=== PATIENT | male | born 1980 | race Caucasian/White ===

== ENCOUNTER 2024-06-09 10:08 | Inpatient (IN) | payer MEDICAID, OTHER ==
[~2024-06-09] VITALS: Ht 188 cm; Wt 124.3 kg
[2024-06-09 11:05] VITALS: O2SAT 99
[2024-06-09 11:24] LABS: BASOPHILS % (AUTO) 0.4 % (0.0-2.0); EOSINOPHILS % (AUTO) 0.2 % (1.0-6.0); HEMATOCRIT 46.6 % (41-53); HEMOGLOBIN 15.6 g/dL (13.5-17.5); LYMPHOCYTES # (AUTO) 2.6 K/uL (1.0-4.8); LYMPHOCYTES % (AUTO) 19.9 % (22.0-44.0); MEAN CORPUSCULAR HEMOGLOBIN 31.4 pg (26.0-34.0); MEAN CORPUSCULAR HGB CONC 33.5 G/dL (31.0-37.0); MEAN CORPUSCULAR VOLUME 94 fL (80-100); MONOCYTES # (AUTO) 0.9 K/uL (0.1-1.0); MONOCYTES % (AUTO) 7.3 % (2.0-9.0); NEUTROPHILS # (AUTO) 9.4 K/uL (1.8-7.7); NEUTROPHILS % (AUTO) 72.2 % (40.0-70.0); PLATELET COUNT (AUTO) 228 K/uL (150-450); RED BLOOD CELL COUNT(AUTO) 4.98 MIL/uL (4.50-5.90); RED CELL DISTRIBUTION WIDTH 14.3 % (11.5-14.5); WHITE BLOOD COUNT (AUTO) 13.1 K/uL (4.5-11.0)
[2024-06-09 11:25] LABS: COVID AG,FIA SOURCE NASAL SWAB
[2024-06-09 11:33] LABS: PH,URINE DRUG SCREEN 5.5 (5.0-8.0)
[2024-06-09 11:34] LABS: ANION GAP 8 mmol/L (8-16); CARBON DIOXIDE 29 mmol/L (22-29); CHLORIDE 98 mmol/L (98-107); CREATININE 0.83 mg/dL (0.60-1.30); GLOMERULAR FILTR. RATE CALC > 60 mL/min (>60); GLUCOSE,RANDOM 121 mg/dL (70-110); POTASSIUM 3.6 mmol/L (3.5-5.1); SODIUM SERUM 135 mmol/L (136-145); UREA NITROGEN, BLOOD 13 mg/dL (7-18)
[2024-06-09 11:41] LABS: ALCOHOL, BLOOD (SERUM) 8 mg/dL (0-10)
[2024-06-09 11:45] LABS: ALCOHOL, URINE DRUG SCREEN NEGATIVE (NEGATIVE); AMPHET/METH SCREEN,URINE POSITIVE (NEGATIVE); BARBITURATE SCREEN, URINE NEGATIVE (NEGATIVE); BENZODIAZEPINES SCREEN,URINE NEGATIVE (NEGATIVE); CANNABINOID SCREEN,URINE NEGATIVE (NEGATIVE); COCAINE SCREEN,URINE NEGATIVE (NEGATIVE); METHADONE SCREEN, URINE NEGATIVE (NEGATIVE); OPIATE SCREEN,URINE POSITIVE (NEGATIVE); PHENCYCLIDINE SCREEN,URINE NEGATIVE (NEGATIVE)
[2024-06-09] MEDS: OLANZapine 5 MG TABLET PO ONE (11:53)
[2024-06-09] MEDS: LORazepam 1 MG TABLET PO ONE (11:53)
[2024-06-09 11:54] LABS: SARS-COV2 (COVID) ANTIGEN,FIA Negative (Negative)
[2024-06-09] MEDS ORDERED: MAGNESIUM HYDROXIDE SUSPENSION 30 ML UDCUP PO PRN (13:15)
[2024-06-09] MEDS ORDERED: LOPERAMIDE HCL 2 MG CAPSULE PO PRN (13:15)
[2024-06-09] MEDS ORDERED: ACETAMINOPHEN 325 MG TABLET PO PRN (13:15)
[2024-06-09] MEDS ORDERED: MAG HYDROX/ALUMINUM HYD/SIMETH ES 30 ML SUSPENSION UDCUP PO PRN (13:15)
[2024-06-09] MEDS ORDERED: HALOPERIDOL 5 MG TABLET PO PRN (13:15)
[2024-06-09 20:35] VITALS: BP 110/56; PULSE 98; RESP 20; TEMP 98; O2SAT 98
[2024-06-09] MEDS: ZOLPIDEM TARTRATE 10 MG TABLET PO PRN (21:43)
[2024-06-09] MEDS: LORazepam 2 MG TABLET PO PRN (21:43)
[2024-06-10] MEDS: NICOTINE 14 MG/24 HOUR PATCH TD SCH (08:26)
[2024-06-10 10:09] VITALS: BP 105/69; PULSE 117; RESP 18; TEMP 96.8; O2SAT 97
[2024-06-10 21:09] VITALS: BP 120/73; PULSE 100; RESP 18; TEMP 97.2; O2SAT 98
[2024-06-11 08:18] VITALS: BP 107/63; PULSE 82; RESP 18; TEMP 97.1; O2SAT 97
[2024-06-11 20:42] VITALS: BP 120/67; PULSE 100; RESP 18; TEMP 97.2; O2SAT 97
[2024-06-12 08:14] VITALS: BP 115/65; PULSE 72; RESP 17; TEMP 97.7; O2SAT 93
== END 2024-06-12 14:04 | disposition home or self-care (01) | DRG 776 ==
LOC: EMS 10:08 → B3A 18:49
PROVIDERS: ADMIT Psychiatry & Neurology Psychiatry; ATTEND Psychiatry & Neurology Psychiatry
DX: F15.259 Other stimulant dependence with stimulant-induced psychotic disorder, unspecified (principal); E87.1 Hypo-osmolality and hyponatremia; R45.850 Homicidal ideations; F25.9 Schizoaffective disorder, unspecified; Z20.822 Contact with and (suspected) exposure to COVID-19; E66.9 Obesity, unspecified; Z68.35 Body mass index [BMI] 35.0-35.9, adult; G47.00 Insomnia, unspecified; F31.9 Bipolar disorder, unspecified; D72.829 Elevated white blood cell count, unspecified; E78.5 Hyperlipidemia, unspecified; F17.210 Nicotine dependence, cigarettes, uncomplicated; F41.9 Anxiety disorder, unspecified; M54.9 Dorsalgia, unspecified; G89.29 Other chronic pain; Z88.0 Allergy status to penicillin; Z88.1 Allergy status to other antibiotic agents
CPT/HCPCS: 80048; 80307; 85025; 99285; G0480

== ENCOUNTER 2024-12-19 18:39 | Emergency (ER) | payer MEDICAID, OTHER ==
[~2024-12-19] VITALS: Ht 188 cm; Wt 113.6 kg
[2024-12-19 18:45] VITALS: BP 102/79; PULSE 118; RESP 18; TEMP 98.1; O2SAT 99
== END 2024-12-20 00:21 | disposition left against medical advice (07) ==
LOC: EMS 18:39
DX: L02.416 Cutaneous abscess of left lower limb (principal); Z88.1 Allergy status to other antibiotic agents; Z53.21 Procedure and treatment not carried out due to patient leaving prior to being seen by health care provider